=== PATIENT | female | born 2000 | race Caucasian/White ===

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

== ENCOUNTER → 2020-07-12 12:33 | Outpatient (BNVA) | payer OTHER, SELFPAY | PROVIDERS: Family Provider Family Medicine; PCP Family Medicine; Visit Provider Nurse Practitioner Family | DX: Z20.828 Contact with and (suspected) exposure to other viral communicable diseases (principal) | CPT/HCPCS: 87635 ==

== ENCOUNTER → 2020-10-01 15:58 | Outpatient (BNVA) | payer OTHER, SELFPAY | PROVIDERS: Family Provider Family Medicine; PCP Family Medicine; Visit Provider Nurse Practitioner | DX: Z20.828 Contact with and (suspected) exposure to other viral communicable diseases (principal) | CPT/HCPCS: 87635 ==

== ENCOUNTER → 2021-10-24 11:46 | Outpatient (BNVA) | payer OTHER, SELFPAY | PROVIDERS: Family Provider Family Medicine; PCP Family Medicine; Visit Provider Registered Nurse Neonatal Intensive Care | DX: J02.9 Acute pharyngitis, unspecified (principal) | CPT/HCPCS: 87071; 87880 ==

== ENCOUNTER 2022-06-23 09:05 | Day surgery (SDC) | payer OTHER, SELFPAY ==
[2022-06-22 09:30] VITALS: BMI 25.1
[2022-06-23 09:31] LABS: OR HCG Qualitative Urine Negative (Negative)
[2022-06-23] MEDS: sodium chloride 0.9% 1,000 ML 30 ML IV (09:34)
[2022-06-23 09:36] VITALS: BP 132/80; PULSE 61; RESP 18; TEMP 36.9; O2SAT 94
--- NOTE | 2022-06-23 10:09 | P.ANESASSM_ITS ---
Pre-Anesthetic Assessment Height/Weight: Height 1.75 m Weight 77.111 kg Temp Pulse Resp BP Pulse Ox O2 Del Method 98.5 F 61 18 132/80 94 06/23/22 09:36 06/23/22 09:36 06/23/22 09:36 06/23/22 09:36 06/23/22 09:36 06/23/22 09:36 Preop Diagnosis: Abd pain Operation Date: 06/23/22 10:30 Proposed Procedures p EGD 40675,R10.9(Not Applicable) - Migel Garcia, DO Was Beta Brian taken within 24 hours: N/A Was Clonidine taken within 24 hours: N/A Last intake: Intake Last Liquid Date 06/22/22 Last Liquid Time 20:00 Last Solid Date 06/22/22 Last Solid Time 20:00 Social No alcohol and No tobacco Exam alert, oriented x 3, clear to auscultation bilaterally and regular rate & rhythm Airway Submandibular: within normal limits Cervical ROM: within normal limits Mallampati: Class II Dentition: full History/ROS No significant history except as noted and No significant complaints Pulmonary None reported CV/HEM None reported None reported Hepatic None reported GI None reported Metabolic None reported Musc/skel None reported Neuropsych None reported Anesthetic Plan ASA status: 1 Anesthesia: MAC Risk of > 500 ml blood loss (7ml/kg in children): No Medications/Allergies Home Medications Medication Instructions Recorded Confirmed Last Taken Type acyclovir 800 mg tablet 800 mg PO DAILY 06/20/22 06/23/22 06/22/22 History menocycline 50 mg PO DAILY 06/20/22 06/23/22 06/22/22 History biotin 10,000 mcg disintegrating 10,000 mcg PO DAILY 06/22/22 06/23/22 06/22/22 History tablet Allergies Allergy/AdvReac Type Severity Reaction Status Date / Time amoxicillin Allergy ALGY-Swell Verified 06/23/22 09:27 Lip/Tongue/Throat Penicillins Allergy ALGY-Swell Verified 06/23/22 09:27 Lip/Tongue/Throat Current Medications Generic Name Dose Route Start Last Admin Trade Name Freq PRN Reason Stop Dose Admin Sodium Chloride 1,000 mls @ 30 mls/hr 06/23/22 09:15 06/23/22 09:34 Sodium Chloride 0.9% IV 06/24/22 09:14 30 mls/hr .Q24H MUNIR Administration PFSH Anesthesia Medical History Abdominal pain Surgical History [place] teeth extracted Family History Mother No problems noted. Social History Smoking and tobacco status: never smoked Female Reproductive History Date of last menstrual period: 06/08/22 Data Anesthesia Cardiac Studies: No Data to Display
--- NOTE | 2022-06-23 10:46 | W.PM.OPSUD ---
Surgery/Procedure H&P Update DATE OF PROCEDURE: June 23, 2022 DATE H&P PERFORMED: 06/20/22 PREOP DIAGNOSIS: Abd pain PLANNED PROCEDURE: Operation Date: 06/23/22 10:30 Proposed Procedures p EGD 84608,R10.9(Not Applicable) - Migel Garcia DO
[2022-06-23 11:11] VITALS: BP 101/69; PULSE 69; RESP 20; TEMP 36.6; O2SAT 99
[2022-06-23 11:23] VITALS: BP 110/68; PULSE 57; RESP 18; O2SAT 100
--- NOTE | 2022-06-23 14:36 | ANE.PACU2 ---
Inpatient post-anesthesia follow up: Airway intact: Yes Vital signs: Temperature 98 F Pulse Rate 57 Respiratory Rate 18 Blood Pressure 110/68 Pulse Oximetry 100 Oxygen Delivery Me thod Room Air Oxygen Flow Rate Fraction of Inspir ed Oxygen Hydration adequate: Yes Nausea and vomiting: No Pain level: 1 Mental status: Baseline
== END 2022-06-23 11:31 | disposition home or self-care (01) ==
PROVIDERS: Anesthesiology; Family Provider Family Medicine; PCP Family Medicine; Visit Provider Surgery
PROC: 0DJ08ZZ Inspection of Upper Intestinal Tract, Via Natural or Artificial Opening Endoscopic (ICD-10-PCS; CPT 43235; principal; 2022-06-23 10:30)
DX: R10.13 Epigastric pain (principal)
CPT/HCPCS: 43235; 81025; 84703; J2704; J7030

== ENCOUNTER 2022-07-03 11:00 | Outpatient (CLI) | payer OTHER, SELFPAY ==
--- NOTE | 2022-07-03 11:00 | US_ITS ---
WS: [id number] RIGHT UPPER QUADRANT ULTRASOUND HISTORY: abd pain x6 months. COMPARISON: None available. Liver: 15.4 cm in length. Normal size liver. No bile duct dilatation or mass. Portal Vein: Normal hepatopetal flow with monophasic waveform. Gallbladder: Normally distended gallbladder with no stones or wall thickening. CBD: 0.2 cm Pancreas: Normal size and echogenicity. Right kidney: 11.2 cm in length. Normal size and echogenicity. No hydronephrosis or mass. Aorta and IVC: Unremarkable abdominal aorta and IVC. No ascites. US/US gall bladder [id number] IMPRESSION: Normal RIGHT upper quadrant ultrasound.
== END 2022-07-03 11:01 | disposition home or self-care (01) ==
PROVIDERS: Family Provider Family Medicine; PCP Family Medicine; Visit Provider Surgery
DX: R10.9 Unspecified abdominal pain (principal)
CPT/HCPCS: 76705

== ENCOUNTER 2022-10-09 10:43 | Emergency (ER) | payer OTHER, SELFPAY ==
[2022-10-09 11:00] VITALS: BP 123/81; PULSE 51; RESP 16; TEMP 37; O2SAT 99; BMI 25.0
--- NOTE | 2022-10-09 12:49 | XRR_ITS ---
PROCEDURE INFORMATION: Exam: XR Abdomen Exam date and time: 10/09/2022 1:07 PM Age: 22 years old Clinical indication: Nausea and vomiting; Abdominal pain; Localized; Right lower quadrant (rlq); Additional info: Rlq pain, n/v/d TECHNIQUE: Imaging protocol: Radiologic exam of the abdomen. Views: Frontal supine view of the abdomen. 1 View. COMPARISON: CR XR coccyx 2V [id number] 11/03/2019 5:37 PM FINDINGS: Gastrointestinal tract: Normal. No bowel dilation. Bones/joints: Unremarkable. XR/XR abdomen 1V* [id number] IMPRESSION: No acute findings.
[2022-10-09 13:30] VITALS: BP 122/74; PULSE 58; RESP 16; TEMP 36.6; O2SAT 100
--- NOTE | 2022-10-09 13:31 | PC.NURSE ---
rounded on pt, rechecked VS
[2022-10-09 14:04] LABS: Basophils % 0.7 %; Eosinophils # 0.1 10^3/uL (0.0-0.8); Eosinophils % 0.9 %; Hematocrit 43.1 % (37.0-47.0); Hemoglobin 14.1 g/dL (11.5-15.3); Lymphocytes # 1.9 10^3/uL (0.8-4.8); Lymphocytes % 33.9 %; Mean Corpuscular HGB Conc 32.7 g/dL (30.0-36.0); Mean Corpuscular Hemoglobin 31.1 pg (28.0-34.0); Mean Corpuscular Volume 95.1 fl (81-99); Mean Platelet Volume 11.5 fL (7.4-10.4); Monocytes # 0.5 10^3/uL (0.2-0.9); Monocytes % 8.2 %; Neutrophils # 3.21 10^3/uL (1.8-7.7); Nucleated Red Blood Cells % 0 %; Platelet Count 205 10^3/cmm (130-400); Red Blood Count 4.53 10^6/uL (4.1-5.3); Red Cell Distribution Width 12.1 % (12.1-15.1); White Blood Count 5.7 10^3/uL (4.0-10.0)
[2022-10-09 14:25] LABS: Alanine Aminotransferase 14 U/L (0-33); Albumin Level 4.5 g/dL (3.5-5.2); Alkaline Phosphatase 63 U/L (35-105); Anion Gap 15.6 (5-19); Aspartate Amino Transferase 20 U/L (0-32); Blood Urea Nitrogen 9 mg/dL (6-20); Calcium 9.2 mg/dL (8.5-10.5); Carbon Dioxide 23 mmol/L (22-29); Chloride 103 mmol/L (98-107); Globulin 3.1 g/dL (1.3-4.6); Glomerular Filtration Rate 89.7 mL/min (90-130); Glucose 84 mg/dL (65-115); Lipase 26 U/L (13-60); Osmolality Calculated 284 mOsm/kg (285-295); Potassium 3.6 mmol/L (3.5-5.1); Sodium 138 mmol/L (136-145); Total Bilirubin 0.5 mg/dL (0.15-1.2); Total Protein 7.6 g/dL (6.6-8.7)
[2022-10-09 14:31] LABS: HCG, Serum Qual Negative (Negative)
== END 2022-10-09 14:18 | disposition left against medical advice (07) ==
PROVIDERS: Emergency Medicine; Emergency Provider Family Medicine; PCP Family Medicine
DX: Z53.21 Procedure and treatment not carried out due to patient leaving prior to being seen by health care provider (principal)
CPT/HCPCS: 36415; 74018; 80053; 83690; 84703; 85025; 99284

== ENCOUNTER 2022-10-11 15:21 | Outpatient (CLI) | payer OTHER, SELFPAY ==
--- NOTE | 2022-10-11 15:30 | CT_ITS ---
WS: [id number] CT ABDOMEN PELVIS TECHNIQUE: Contrast-enhanced CT of the abdomen and pelvis with coronal and sagittal reformatted image s. CLINICAL INFORMATION: abdomina pain, COMPARISON: CT 2014 DLP: 364.[address] scans at [facility] use at least one of these dose optimization techniques: automated e xposure control; mA and/or kV adjustment per patient size (includes targeted exams where dose is matc hed to clinical indication); or iterative reconstruction. FINDINGS: Inspissated secretions in the appendix similar to 2014. No evidence of acute appendicitis. Air-filled visualized in the proximal appendix. Heterogeneously enhancing uterus likely physiologic. Endometrial thickening or fluid in the endometri al canal. Peripheral enhancing RIGHT corpus luteum cyst with small amount of free fluid in the pelvis . Corpus luteum cyst measures 1.8 x 1.7 CM. Lung bases are well aerated. Normal liver. Normal spleen. Normal GE junction. Adrenal glands are normal. Normal renal parenchymal enhancement. No hydronephrosis. Normal caliber ab dominal aorta. Normal sigmoid colon. Mild RIGHT colon and hepatic flexure constipation. Normal portal vein and splenic vein. Normal pancreas. Gallbladder is contracted. CT/CT abdomen pelvis w con* [id number] IMPRESSION: 1. Normal appendix in the RIGHT lower quadrant with no evidence of acute appen dicitis. A few inspissated secretions in the distal appendix unchanged since 20 14 2. Small amount of free fluid in the pelvis. Peripheral enhancing RIGHT corpus luteum cyst measuring 1.8 x 1.7 CM. 3. Normal renal parenchymal enhancement. No hydronephrosis. 4. Moderate RIGHT colon and hepatic flexure constipation. 5. No other acute findings.
[2022-10-11] MEDS: iohexol 350 mg/mL 100 mL Btl IV (16:03)
== END 2022-10-11 15:22 | disposition home or self-care (01) ==
PROVIDERS: PCP Family Medicine; Visit Provider Internal Medicine
DX: N83.11 Corpus luteum cyst of right ovary (principal); R11.2 Nausea with vomiting, unspecified; R10.11 Right upper quadrant pain; K59.00 Constipation, unspecified
CPT/HCPCS: 74177; Q9967

== ENCOUNTER 2024-01-15 07:16 | Emergency (ER) | payer SELFPAY ==
[2024-01-15 07:28] VITALS: BP 129/74; PULSE 71; RESP 16; TEMP 36.8; O2SAT 100; BMI 26.6
[2024-01-15] MEDS: sodium chloride 0.9% 1,000 ML 999 ML IV (07:38)
[2024-01-15 07:58] LABS: Basophils # 0.1 10^3/uL (0.0-0.1); Basophils % 1.1 %; Eosinophils # 0.2 10^3/uL (0.0-0.8); Eosinophils % 3.5 %; Hematocrit 42.6 % (36-47); Lymphocytes # 1.3 10^3/uL (0.8-4.8); Lymphocytes % 24.5 %; Mean Corpuscular HGB Conc 32.9 g/dL (30-55); Mean Corpuscular Hemoglobin 30.4 pg (27-33); Mean Corpuscular Volume 92.4 fl (85-98); Mean Platelet Volume 11.1 fL (7.4-10.4); Monocytes # 0.4 10^3/uL (0.2-0.9); Monocytes % 8.1 %; Neutrophils # 3.41 10^3/uL (1.8-7.7); Neutrophils % 62.4 %; Nucleated Red Blood Cells % 0 %; Platelet Count 239 10^3/cmm (157-399); Red Blood Count 4.61 10^6/uL (3.85-5.65); Red Cell Distribution Width 12.2 % (12.1-15.1); White Blood Count 5.46 10^3/uL (3.29-11.43)
[2024-01-15 08:09] LABS: HCG, Serum Qual Negative (Negative)
[2024-01-15 08:12] LABS: Specific Gravity, Urine 1.015 (1.005-1.030); Urine Appearance Slightly Cloudy (CLEAR); Urine Color Yellow (Yellow); pH Urine 8 (5-7)
[2024-01-15 08:13] LABS: Add Urine Microscopic? YES; Bilirubin Urine Neg (Negative); Blood Urine Neg (Negative); Glucose Urine UA Norm (Normal); Ketones Urine 1+ (Negative); Leukocyte Esterase Urine Trace (Negative); Nitrate Urine Negative (Negative); Protein Urine Neg (Negative); Urobilinogen Urine Norm (Negative)
[2024-01-15 08:16] LABS: Add Urine Culture? No; Bacteria Urine 1+ /hpf; Mucus Urine 1+ /hpf
[2024-01-15 08:17] LABS: Alanine Aminotransferase 14 U/L (0-33); Albumin Level 4.6 g/dL (3.5-5.2); Alkaline Phosphatase 66 U/L (35-105); Anion Gap 16.9 (5-19); Aspartate Amino Transferase 20 U/L (0-32); Blood Urea Nitrogen 10 mg/dL (6-20); Calcium 9.3 mg/dL (8.5-10.5); Carbon Dioxide 24 mmol/L (22-29); Chloride 103 mmol/L (98-107); Creatinine Clr Calc Pharmacy 121.0175; Globulin 3.1 g/dL (1.3-4.6); Glomerular Filtration Rate 88.9 mL/min (90-130); Glucose 96 mg/dL (65-115); Lipase 24 U/L (13-60); Osmolality Calculated 289 mOsm/kg (285-295); Potassium 3.9 mmol/L (3.5-5.1); Sodium 140 mmol/L (136-145); Total Bilirubin 0.4 mg/dL (0.15-1.2); Total Protein 7.7 g/dL (6.6-8.7)
--- NOTE | 2024-01-15 08:19 | ED_ITS ---
HPI - Nausea/Vomiting/Diarrhea 2 General: Chief complaint: Nausea/Vomiting/Diarrhea Stated complaint: n/v, abd pain Time Seen by Provider: 01/15/24 07:20 Source: patient Mode of arrival: ambulatory History of Present Illness: 23-year-old female presents to the emerg ency room with complaints of nausea vomiting abdominal pain. She states that Synolis continuance since January 09. Looking back most of her visits have been related to nausea vomiting abdominal pain year ago she had a ovarian cyst removed that was negative she has had EGD done which was also unremarkable despite that she continues symptoms she does get some relief from Zofran. She does use medical marijuana daily. Denies any medic easy melena hematemesis or coffee-ground emesis no fever sweats or chills. MD elicited complaint: nausea and vomiting Onset (ago): week(s) Description of vomiting: food contents and watery Associated nausea: Yes Associated abdominal pain: Yes Location of pain: Diffuse Pain consistency: constant Severity: mild Quality: cramping Exacerbating factors: eating Relieving factors: none Associated symtoms: Reports nausea; Denies altered mental status, anxiety, bloating, change in vision, chest pain, cough, diaphoresis, decreased urine output, dizziness, dysuria, epistaxis, fatigue, fecal incontinence, fevers/chills, headache(s), anorexia, malaise, myalgias, numbness, palpitations, rash, short of breath, syncope, tenesmus, tinnitus or weakness Review of Systems 2 Const: Denies: fever(s), chills, fatigue, malaise or diaphoresis Eyes: Denies: change in vision ENMT: Denies: tinnitus or epistaxis Card: Denies: chest pain, palpitations or syncope Resp: Denies: dyspnea GI: Reports: abdominal pain and nausea; Denies: bloating or fecal incontinence : Denies: dysuria Musc: Denies: neck pain or back pain Skin/Breast: Denies: rash Neuro: Denies: headache(s) or dizziness Psych: Denies: anxiety PFSH ED 2 PFSH: Medical History Abdominal pain Surgical History [place] teeth extracted Family History Mother No problems noted. Social History Smoking and tobacco/nicotine status: never used tobacco/nicotine Physical Exam 2 Const: EXAM LIMITATIONS: no altered mental status GENERAL APPEARANCE: c ooperative and comfortable ORIENTATION/CONSCIOUSNESS: Yes awake, Yes oriented to person, Yes oriented to place and Yes oriented to time HENMT: COMMON NORMALS: normocephalic, atraumatic and hearing grossly normal bilaterally HEAD & SCALP: normocephalic and atraumatic Resp: COMMON NORMALS: normal respiratory effort, No retractions, No use of accessory muscles and clear to auscultation bilaterally AUSCULTATION: clear to auscultation bilaterally Cardio: COMMON NORMALS: regular rate, regular rhythm and No murmurs present (Cardio) RATE: regular rate RHYTHM: regular rhythm GI: COMMON NORMALS: Soft to palpation and No hepatosplenomegaly present A USCULTATION: Yes normoactive bowel sounds PALPATION: Yes Soft to palpation, No Tenderness to palpation present (GI), No Guarding due to palpation present (GI) and Yes No hepatosplenomegaly present Extremity: COMMON NORMALS: normal to inspection, capillary refill normal, no clubbing, cyanosis or edema, no calf tenderness and no pedal edema Neuro: SENSORIUM/ORIENTATION: Yes oriented to person, Yes oriented to place and Yes oriented to time Skin: COMMON NORMALS: no rashes or lesions noted GENERAL SKIN EXAM: no rashes or lesions noted Course 2 Vital Signs: Vital signs: Vital Signs Temperature 98.2 F 01/15/24 07:28 Pulse Rate 68 01/15/24 09:36 Respiratory Rate 16 01/15/24 07:28 Blood Pressure 111/59 01/15/24 09:36 Pulse Oximetry 98 01/15/24 09:36 Oxygen Delivery Me thod Room Air 01/15/24 09:36 MDM - Nausea/Vomiting/Diarrhea Medical Decision Making Nausea improved after fluids and Zofran. Patient does use medical marijuana daily discussion the patient think some of her symptoms may be persisting because of this encouraged her to consider backing off regular use gave her promethazine to use as needed. Reviewed laboratory findings with her follow-up with primary care as needed Medical Records I reviewed the patient's medical records. Lab Data I reviewed the patient's lab results. 01/15/24 07:36 01/15/24 07:36 Laboratory Results WBC 5.46 10^3/uL (3.29-11.43) 01/15/24 07:36 RBC 4.61 10^6/uL (3.85-5.65) 01/15/24 07:36 Hgb 14.00 g/dL (11.27-16.99) 01/15/24 07:36 Hct 42.6 % (36-47) 01/15/24 07:36 MCV 92.4 fl (85-98) 01/15/24 07:36 MCH 30.4 pg (27-33) 01/15/24 07:36 MCHC 32.9 g/dL (30-55) 01/15/24 07:36 RDW 12.2 % (12.1-15.1) 01/15/24 07:36 Plt Count 239 10^3/cmm (157-399) 01/15/24 07:36 MPV 11.1 fL (7.4-10.4) H 01/15/24 07:36 Neut % (Auto) 62.4 % 01/15/24 07:36 Lymph % (Auto) 24.5 % 01/15/24 07:36 [place] % (Auto) 8.1 % 01/15/24 07:36 Eos % (Auto) 3.5 % 01/15/24 07:36 Baso % (Auto) 1.1 % 01/15/24 07:36 Neut # (Auto) 3.41 10^3/uL (1.8-7.7) 01/15/24 07:36 Lymph # (Auto) 1.3 10^3/uL (0.8-4.8) 01/15/24 07:36 [place] # (Auto) 0.4 10^3/uL (0.2-0.9) 01/15/24 07:36 Eos # (Auto) 0.2 10^3/uL (0.0-0.8) 01/15/24 07:36 Baso # (Auto) 0.1 10^3/uL (0.0-0.1) 01/15/24 07:36 Nucleated RBC % (auto) 0 % 01/15/24 07:36 Nucleated RBCs # 0.0 /100WBC 01/15/24 07:36 Sodium 140 mmol/L (136-145) 01/15/24 07:36 Potassium 3.9 mmol/L (3.5-5.1) 01/15/24 07:36 Chloride 103 mmol/L (98-107) 01/15/24 07:36 Carbon Dioxide 24 mmol/L (22-29) 01/15/24 07:36 Anion Gap 16.9 (5-19) 01/15/24 07:36 BUN 10 mg/dL (6-20) 01/15/24 07:36 Creatinine 0.8 mg/dL (0.5-0.9) 01/15/24 07:36 GFR Calculation 88.9 mL/min (90-130) L 01/15/24 07:36 Glucose 96 mg/dL (65-115) 01/15/24 07:36 Calculated Osmolality 289 mOsm/kg (285-295) 01/15/24 07:36 Calcium 9.3 mg/dL (8.5-10.5) 01/15/24 07:36 Total Bilirubin 0.4 mg/dL (0.15-1.2) 01/15/24 07:36 AST 20 U/L (0-32) 01/15/24 07:36 ALT 14 U/L (0-33) 01/15/24 07:36 Alkaline Phosphatase 66 U/L (35-105) 01/15/24 07:36 Total Protein 7.7 g/dL (6.6-8.7) 01/15/24 07:36 Albumin 4.6 g/dL (3.5-5.2) 01/15/24 07:36 Globulin 3.1 g/dL (1.3-4.6) 01/15/24 07:36 Lipase 24 U/L (13-60) 01/15/24 07:36 HCG, Qual Negative (Negative) 01/15/24 07:36 Urine Color Yellow (Yellow) 01/15/24 07:40 Urine Appearance Slightly cloudy (CLEAR) 01/15/24 07:40 Urine pH 8 (5-7) H 01/15/24 07:40 Ur Specific [place] 1.015 (1.005-1.030) 01/15/24 07:40 Urine Protein Neg (Negative) 01/15/24 07:40 Urine Glucose (UA) Norm (Normal) 01/15/24 07:40 Urine Ketones 1+ (Negative) H 01/15/24 07:40 Urine Blood Neg (Negative) 01/15/24 07:40 Urine Nitrate Negative (Negative) 01/15/24 07:40 Urine Bilirubin Neg (Negative) 01/15/24 07:40 Urine Urobilinogen Norm mg/dL (Negative) 01/15/24 07:40 Ur Leukocyte Esterase Trace (Negative) H 01/15/24 07:40 Urine RBC None /hpf (0-2) 01/15/24 07:40 Urine WBC 5-10 /hpf (0-5) H 01/15/24 07:40 Ur Squamous Epith Cells 5-10 /hpf (0-5) H 01/15/24 07:40 Amorphous Sediment Not Reportable 01/15/24 07:40 Urine Bacteria 1+ /hpf (NONE) H 01/15/24 07:40 Urine Mucus 1+ /hpf 01/15/24 07:40 All radiology interpretation(s) finalized by discharge Discharge Plan Discharge Patient Disposition: Home Clinical Impression: Nausea & vomiting Condition: Stable Prescriptions: New promethazine 25 mg tablet 25 mg PO Q6H PRN (Reason: nausea and vomiting) Qty: 20 0RF No Action venlafaxine 50 mg tablet 50 mg PO DAILY ondansetron 4 mg tablet,disintegrating 4 mg PO Q8H PRN (Reason: nausea and vomiting) Qty: 30 1RF acyclovir 800 mg tablet 800 mg PO DAILY hydroxyzine HCl 50 mg tablet 50 mg PO QID PRN (Reason: itching) Qty: 120 0RF Discharge Orders: Discharge ED (Routine); Ordered 01/15/24 Ordered By: Gianfranco George Referrals: Camden Taylor MD [Primary Care Provider] - Discharge Diet: Clear Liquid Discharge Activity: Increase activity as tolerated Patient Instructions: Opioid Safety, Pain Management Activity Restrictions/Additional Instructions: Thank you for choosing [facility] for your healthcare needs today. It is very important that you follow up as instructed or that you return to the Emergency Department should you have concerns or if your condition changes or worsens in any way. You are seen today for persistent nausea and vomiting. The regular use of medical marijuana is likely to contribute to this problem. Recommend considering cutting back on its use. You can continue to use either the yanethazine Coding Level of Care Code ED Unix Manager for Mariah Kelly
[2024-01-15] MEDS: ondansetron 2 mg/ML SDV 2 mL 4 MG IVP (08:42)
[2024-01-15 09:36] VITALS: BP 111/59; PULSE 68; O2SAT 98
== END 2024-01-15 10:05 | disposition home or self-care (01) ==
PROVIDERS: Emergency Provider Family Medicine; PCP Family Medicine
DX: R11.2 Nausea with vomiting, unspecified (principal)
CPT/HCPCS: 80053; 81001; 83690; 84703; 85025; 96374; 99284; J2405; J7030